=== PATIENT | female | born 1960 | race Caucasian/White ===

== ENCOUNTER 2023-03-26 17:24 | Emergency (ER) | payer BC, OTHER ==
[2023-03-26] MEDS: Nitroglycerin 0.4 MG Tab.SL SL PRN ×2 (17:38→17:43)
[2023-03-26] MEDS ORDERED: Sodium Chloride 0.9% 10 ML Syringe FLUSH PRN (17:42)
[2023-03-26] MEDS ORDERED: Labetalol 20 MG/4 ML Syringe IVPUSH ONE (17:42)
[2023-03-26] MEDS ORDERED: Heparin Sodium 5,000 Units/ML Vial IVPUSH ONE (17:49)
[2023-03-26] MEDS ORDERED: Aspirin 81 MG Tab.Chew PO ONE ×2 (17:52→17:55)
[2023-03-26 17:55] LABS: BASOPHILS ABSOLUTE AUTO 0.1 x10-3/uL (0.0-0.1); BASOPHILS PERCENT AUTO 0.7 % (0.2-1.5); BLOOD UREA NITROGEN,BUN 11 mg/dL (7-18); BUN/CREATININE RATIO 12.2 (9-20); CALCIUM 9.1 mg/dL (8.6-10.2); CARBON DIOXIDE,CO2 27 mmol/L (21-32); CHLORIDE,CL 104 mmol/L (100-110); CREATININE 0.9 mg/dL (0.55-1.02); EOSINOPHILS ABSOLUTE AUTO 0.3 x10-3/uL (0.0-0.8); EOSINOPHILS PERCENT AUTO 2.6 % (0.6-8.1); EST CRCL DRUG DOSING (CG) 63.83 mL/min; ESTIMATED GFR 73 mL/min (>60); GLUCOSE RANDOM 166 mg/dL (80-116); HEMATOCRIT 48.8 % (34.2-48.2); HEMOGLOBIN 16.7 g/dL (11.4-15.5); LYMPHOCYTES ABSOLUTE AUTO 4.1 x10-3/uL (1.0-4.4); LYMPHOCYTES PERCENT AUTO 33.1 % (18.4-52.1); MEAN CORPUSCULAR HEMOGLOBIN 32.4 pg (23.9-33.9); MEAN CORPUSCULAR HGB CONC 34.3 g/dL (31.9-34.8); MEAN CORPUSCULAR VOLUME 94.5 fL (76.7-100.5); MEAN PLATELET VOLUME 7.8 fL (7.1-12.4); MONOCYTES ABSOLUTE AUTO 1.3 x10-3/uL (0.3-1.0); MONOCYTES PERCENT AUTO 10.4 % (4.4-15.7); NEUTROPHILS ABSOLUTE AUTO 6.5 x10-3/uL (1.5-6.3); NEUTROPHILS PERCENT AUTO 53.2 % (30.8-76.2); PLATELET COUNT,PLT 263 x10(3)uL (151-488); POTASSIUM,K 3.1 mmol/L (3.5-5.3); RED BLOOD CELL COUNT 5.16 x10(6)uL (3.60-5.20); RED CELL DISTRIBUTION WIDTH 13.9 % (12.3-16.5); SODIUM,NA 142 mmol/L (135-145); WHITE BLOOD CELL COUNT,WBC 12.3 x10-3/uL (3.0-10.3)
[2023-03-26] MEDS ORDERED: Clopidogrel 75 MG Tab PO ONE (17:57)
[2023-03-26] MEDS ORDERED: Heparin Sodium/0.45% NaCl 500 ML IV SCH (18:00)
[2023-03-26] MEDS ORDERED: Aspirin 81 MG Tab.Chew PO SCH (18:00)
[2023-03-26 18:01] LABS: A/G RATIO 0.8; ALANINE AMINOTRANSFERASE,ALT 31 U/L (12-36); ALBUMIN 3.5 g/dL (3.2-4.6); ALKALINE PHOSPHATASE 160 IU/L (56-112); ASPARTATE AMNIOTRANSFERASE,AST 17 IU/L (5-25); BILIRUBIN TOTAL 0.2 mg/dL (0.1-1.3); PROTEIN TOTAL,TP 7.9 g/dL (6.0-8.0)
[2023-03-26 18:09] LABS: TROPONIN I 35.3 pg/mL (4.0-60.3)
[2023-03-26] MEDS: hydrALAZINE 20 MG/ML SDV IVPUSH STA ×2 (18:22→18:23)
[2023-03-26 18:24] LABS: INR 0.94 (1.00-1.24); PROTHROMBIN TIME 9.7 sec (9.0-11.1); PTT,PARTIAL THROMBOPLSTIN TIME 27.4 SECONDS (24.4-33.2)
[2023-03-26 18:37] LABS: BILIRUBIN,URINE NEGATIVE (NEGATIVE); GLUCOSE,URINE 50 mg/dL (NORMAL); KETONES,URINE NEGATIVE (NEGATIVE); LEUKOCYTE ESTERASE,URINE NEGATIVE (NEGATIVE); NITRITE,URINE NEGATIVE (NEGATIVE); OCCULT BLOOD,URINE MODERATE (NEGATIVE); PROTEIN,URINE NEGATIVE (NEGATIVE); UROBILINOGEN,URINE NORMAL (NEGATIVE)
[2023-03-26 18:40] LABS: APPEARANCE,URINE CLEAR (CLEAR); BACTERIA,URINE NOT SEEN (NS); COLOR,URINE YELLOW (YELLOW); RBC,URINE 0-5 (0-5); SQUAMOUS EPITHELIAL CELLS,UR RARE (NS,R,O); WBC,URINE 0-5 (0-5)
== END 2023-03-26 18:40 ==
LOC: FB.ED 17:24
DX: I21.3 ST elevation (STEMI) myocardial infarction of unspecified site (principal); I16.9 Hypertensive crisis, unspecified; E87.6 Hypokalemia; R77.8 Other specified abnormalities of plasma proteins
CPT/HCPCS: 71045; 80053; 81001; 83880; 84484; 85025; 85379; 85610; 85730; 93005; 96365; 96375; 96376; 99285; A9270; J1644; J3490; J0360